=== PATIENT | male | born 1990 | race Caucasian/White ===

== ENCOUNTER 2022-03-10 14:32 | Emergency (ER) | payer SELFPAY ==
[~2022-03-10] VITALS: Ht 160 cm; Wt 63.5 kg
[2022-03-10 14:38] VITALS: BP 138/90
--- NOTE | 2022-03-10 15:00 | NUR ---
BIB FAMILY C/O SOB X TODAY , COUGH X 3 DAYS. O2SAT 98 % AT THIS TIME. PMH: ANXIETY
[2022-03-10] MEDS ORDERED: LORazepam 1 MG TAB PO ONE (15:45)
--- NOTE | 2022-03-10 16:09 | NUR ---
PT TAKEN TO X RAY.
[2022-03-10 17:33] LABS: ALBUMIN 4.1 g/dL (3.4-5.0); ANION GAP 13.6 (8-16); CARBON DIOXIDE 25.7 mmol/L (21-32); CREATININE 0.9 mg/dL (0.6-1.3); POTASSIUM 4.3 mmol/L (3.5-5.1); TOTAL BILIRUBIN 0.2 mg/dL (0.0-1.0)
[2022-03-10] MEDS ORDERED: HYDR25CA1 PO (17:55)
--- NOTE | 2022-03-10 18:05 | NUR ---
Patient discharged with v/s stable. Written and verbal after care instructions given and explained. Patient alert, oriented and verbalized understanding of instructions. Ambulatory with steady gait. All questions addressed prior to discharge. ID band removed. Patient advised to follow up with PMD. Rx of VISTARIL given. Patient educated on indication of medication including possible reaction and side effects. Opportunity to ask questions provided and answered.
[2022-03-10 18:06] VITALS: BP 136/97
== END 2022-03-10 18:06 | disposition home or self-care (01) ==
LOC: MED 14:32
DX: F41.9 Anxiety disorder, unspecified (principal)
CPT/HCPCS: 36415; 71045; 80053; 93005; 99285